=== PATIENT | female | born 1990 | race Caucasian/White ===

== ENCOUNTER 2024-02-07 10:00 | Outpatient (REF) | payer BC, SELFPAY ==
--- NOTE | ~2024-02-07 | XR_ITS ---
EXAMINATION: XR RIGHT WRIST CLINICAL INFORMATION: Pain in right wrist. COMPARISON: None available. TECHNIQUE: 4 views of the right wrist. FINDINGS: The bone mineralization is normal. Mild degenerative changes with loss of the joint space and hypertrophic change in the first carpometacarpal joint. Alignment preserved. No displaced fracture appreciated. XR/XR wrist RT w scaphoid IMPRESSION: 1. Mild degenerative changes first carpometacarpal joint. 2. Recommend follow up imaging in 10-14 days if fracture is suspected.
== END 2024-02-07 10:01 | disposition home or self-care (01) ==
LOC: HO.HOSX 10:00
PROVIDERS: Visit Provider Orthopaedic Surgery
DX: M25.531 Pain in right wrist (principal); R20.0 Anesthesia of skin; R20.2 Paresthesia of skin
CPT/HCPCS: 73110

== ENCOUNTER 2024-02-07 15:02 | Outpatient (AMB) | payer BC, SELFPAY ==
--- NOTE | 2024-02-07 15:13 | A.OFFVIS_ITS ---
Vital Signs 02/07/24 15:14 Height 5 ft 2 in Weight 135 lb BMI 24.7 Intake Visit Reasons: New Pt - right wrist pain Intake Note: Gunner 33 yr old female who is right hand dominant female presents today for right hand numbness and tingling. States she has symptoms of CTS for about 3-4 months and worsen in december. States its worse at night time, she wears a night time brace which helps. No EMG done. Allergies oxycodone Allergy (Severe, Verified 02/07/24 15:15) itchy face/vomiting HPI HPI New Pt - right wrist pain: Details: Gunner is a 33 year old right hand dominant woman who presents with complaints of right hand numbness. She complains of numbness in the thumb, index, and middle fingers. Symptoms intermittent, primarily during the day, and at night she experiences more of a burning pain in the median nerve distribution. She says this has been present for ~4 months She denies any small finger numbness, and denies any left hand numbness. 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 She enjoys crocheting but says she cant do so due to her numbness, which she finds frustrating. She says she finds some relief from wearing a brace at night. She denies any prior treatment or a NCS. 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 Review of Systems Const All systems reviewed & are unremarkable except as noted in HPI and below Physical Exam Vital Signs: BMI result Body Mass Index 24.7 Const General: cooperative, healthy appearing and no acute distress Orientation/consciousness: patient oriented x3 HEENT Head: Yes normocephalic and Yes atraumatic Eyes EOM: EOMs intact bilaterally Resp Effort & Inspection: normal respiratory effort and able to speak in complete sentences Cardio Jugular venous distension: no JVD Skin General skin exam: turgor normal Rashes: no rashes Neuro General: patient oriented x3 Extrem Other: Evaluation of Right Upper Extremity: The patient is alert, oriented, and in no acute distress Neuro: Median, Ulnar, Radial nerves motor and sensory intact and sensation is normal to the tips of all digits No thenar or intrinsic wasting Good APB muscle belly firing and good finger cross Vascular: Cap refill brisk ROM: She can make a fist and extend all her digits No locking or catching Skin: No lacerations or abrasions. General: No Ecchymosis. No Erythema or evidence of infection. Radiographs: 3 views of the right wrist were taken and viewed by me today in clinic. They show no fractures or dislocations. No appreciable arthritic changes. Psych Appearance: grossly normal Affect: normal affect Attitude: cooperative Assessment & Plan Assessment & Plan (1) Numbness and tingling in right hand: Code(s): R20.0 - Anesthesia of skin; R20.2 - Paresthesia of skin Category: Medical Plan Assessment & Plan: 1. Right hand numbness, In the median nerve distribution Symptoms intermittent, but daily, worse at night I educated her about carpal tunnel syndrome I discussed operative treatment options I ordered a NCS to assess for peripheral nerve compression She will follow up when completed for review Scribed for Alice Arzate MD by Morgan Pina, medical oncologist, on 02/07/24 at 3:30 PM, EST. Orders: Orders XR wrist RT w scaphoid Today M25.531 - Pain in right wrist Coding Level of Care Code New Pt Level 3 (04952) Diagnoses Numbness and tingling in right hand R20.0; R20.2
[2024-02-07 15:14] VITALS: BMI 24.7
== END 2024-02-07 15:38 | disposition home or self-care (01) ==
PROVIDERS: Visit Provider Orthopaedic Surgery
DX: R20.0 Anesthesia of skin (principal); R20.2 Paresthesia of skin
CPT/HCPCS: 99203

== ENCOUNTER 2024-03-13 15:00 | Outpatient (REF) | payer BC, SELFPAY ==
--- NOTE | 2024-03-13 15:03 | EMG_ITS ---
Chief complaint: Right hand numbness since beginning of the year Reason for referral: Evaluate for Carpal Tunnel Syndrome Referred by: Dr. Arzate Procedure done: Right upper extremity NCS/EMG Precautions and/or limitations: None The limb temperature was monitored continuously and remained between 32-36 degrees C during the performance of the NCS. Nerve Conduction Studies Anti Sensory Summary Table ?Stim Site NR Onset (ms) Norm Onset (ms) Peak (ms) Norm Peak (ms) O-P Amp (?V) Norm O-P Amp Site1 Site2 Delta-0 (ms) Dist (cm) Nash (m/s) Norm Nash (m/s) Right Median Anti Sensory (2nd Digit) Wrist ? 2.6 3.3 <3.6 30.5 >10 Wrist 2nd Digit 2.6 14.0 54 Right Ulnar Anti Sensory (5th Digit) Wrist ? 1.4 2.8 <3.7 18.1 >15.0 Wrist 5th Digit 1.4 14.0 100 Motor Summary Table ?Stim Site NR Onset (ms) Norm Onset (ms) O-P Amp (mV) Norm O-P Amp iAmp (mV) Amp (1st) (%) Site1 Site2 Delta-0 (ms) Dist (cm) Nash (m/s) Norm Nash (m/s) Right Median Motor (Abd Poll Brev) Wrist ? 3.6 <3.9 11.3 >4.5 13.1 100.0 Elbow Wrist 3.4 18.0 53 >45 Elbow ? 7.0 9.0 11.0 79.6 Right Ulnar Motor (Abd Dig Minimi) Wrist ? 2.6 <3.0 8.4 >5 11.3 100.0 B Elbow Wrist 2.3 16.0 70 >45 B Elbow ? 4.9 7.0 8.8 83.3 A Elbow B Elbow 1.3 10.0 77 >45 A Elbow ? 6.2 6.9 8.7 82.1 Comparison Summary Table ?Stim Site NR Peak (ms) Norm Peak (ms) P-T Amp (?V) Site1 Site2 Delta-P (ms) Norm Delta (ms) Right Median/Radial Dig I Comparison (Digit 1 - 10cm) Median ? 2.7 <2.9 59.0 Median Radial 0.5 Radial ? 2.2 <2.8 20.8 EMG ?Side Muscle Nerve Root Ins Act Fibs Psw Amp Dur Poly Recrt Int Pat Comment Right 1stDorInt Ulnar C8-T1 Nml Nml Nml Nml Nml 0 Nml Complete Right FlexCarRad Median C6-7 Nml Nml Nml Nml Nml 0 Nml Complete Right Biceps Musculocut C5-6 Nml Nml Nml Nml Nml 0 Nml Complete Right Triceps Radial C6-7-8 Nml Nml Nml Nml Nml 0 Nml Complete Right Deltoid Axillary C5-6 Nml Nml Nml Nml Nml 0 Nml Complete FINDINGS: All motor and sensory nerves tested showed normal latencies, amplitudes and conduction velocities. Interlatency difference between right median and radial sensory nerves was 0.5. Concentric needle EMG was performed in selected muscles of the right upper extremity. Study did not reveal signs of electric abnormalities as shown in the table below. IMPRESSION: 1. This is a normal study. 2. There is no electrodiagnostic evidence for median neuropathy, ulnar neuropathy, brachial plexopathy, or cervical radiculopathy. Thank you for your kind referral. Sydnee Renee MD, VIRGEN Board Certified, [place] [employer] and [employer] (ABPMR) Board Certified, [place] [employer] Electrodiagnostic Medicine (ABEM) [place] [id number] [facility]
== END 2024-03-13 15:01 | disposition home or self-care (01) ==
LOC: HO.NEURO 15:00
PROVIDERS: Visit Provider Orthopaedic Surgery
DX: R20.0 Anesthesia of skin (principal); R20.2 Paresthesia of skin
CPT/HCPCS: 95886; 95909

== ENCOUNTER → 2024-03-13 15:03 | Outpatient (BNV) | payer BC, SELFPAY | PROVIDERS: Visit Provider Physical Medicine & Rehabilitation | DX: R20.2 Paresthesia of skin (principal); R20.0 Anesthesia of skin | CPT/HCPCS: 95886; 95909 ==